=== PATIENT | female | born 1960 | race Caucasian/White ===

== ENCOUNTER 2017-07-09 11:55 | Emergency (ER) | payer OTHER ==
[~2017-07-09] VITALS: Ht 175.3 cm; Wt 75.0 kg
[2017-07-09 14:15] VITALS: BP 161/97
== END 2017-07-09 14:16 | disposition left against medical advice (07) | DRG 103 ==
LOC: ED 11:55
DX: F07.81 Postconcussional syndrome (principal); Z91.19 Patient's noncompliance with other medical treatment and regimen